=== PATIENT | male | born 1950 | race Caucasian/White ===

== ENCOUNTER 2017-02-13 00:28 | Emergency (ER) | payer BC ==
[2017-02-13] MEDS ORDERED: Ondansetron INJ* 2 MG/ML VIAL IV ONE (02:28)
[2017-02-13] MEDS: NS 0.9% 1000 ML* 2,000 ML IV ONE (02:51)
[2017-02-13 03:00] LABS: Hematocrit 45 % (42-52); Hemoglobin 15.6 g/dl (14.0-18.0); Mean Corpuscular HGB Conc 35 g/dl (31-36); Mean Corpuscular Hemoglobin 32 pg (27-31); Mean Corpuscular Volume 93 fL (80-94); Mean Platelet Volume 8 um3 (7.4-10.4); Red Blood Count 4.83 10^6/ul (4.0-5.4); Red Cell Distribution Width 13 % (10.5-15); White Blood Count 8.5 10^3/ul (3.5-10.8)
[2017-02-13 03:13] LABS: Albumin 3.6 g/dL (3.2-5.2); BUN/Creatinine Ratio 19.4 (8-20); C Reactive Protein 118.11 mg/L (< 5.00); Calcium 8.8 mg/dL (8.6-10.3); EGFR African American 75.5 (>60); EGFR Non-African American 58.7 (>60); Globulin 3.2 g/dL (2-4); Potassium 3.8 mmol/L (3.5-5.0); Total Bilirubin 0.7 mg/dL (0.2-1.0); Total Protein 6.8 g/dL (6.4-8.9)
[2017-02-13 03:15] LABS: Troponin I 0.01 ng/mL (<0.04)
[2017-02-13 03:31] LABS: TSH (Thyroid Stimulating Horm) 0.56 mcIU/mL (0.34-5.60)
[2017-02-13] MEDS ORDERED: Iodixanol* (CONTRAST) 320 MG/ML 100 ML SDV IV ONE (03:39)
[2017-02-13] MEDS ORDERED: Levofloxacin 750 MG IVPREMIX(* 750 MG/150 ML BAG IVPB ONE (07:38)
--- NOTE | 2017-02-13 07:38 | RAD ---
INDICATION: Abdominal pain COMPARISON: CT September 30, 2009 TECHNIQUE: Axial source images were obtained from the hemidiaphragms to the symphysis pubis following administration of oral and intravenous contrast. 100 mL Visipaque 320 was utilized. Coronal and sagittal reconstructed images were acquired. Lung bases: There is consolidation in the periphery of the right lung base suggesting an acute pneumonitis. Liver: The liver is normal in size. There are no masses. There is no ductal dilatation. Gallbladder: There are no calcified gallstones. There is no evidence of wall thickening or pericholecystic fluid. Spleen: The spleen is normal in size. There are no masses. Pancreas: There is no focal pancreatic mass or ductal dilatation. Adrenal glands: There is no evidence of adrenal mass. Kidneys: There is again bilateral nephrolithiasis and there are parapelvic cysts. The appearance is unchanged. There is prompt perfusion and excretion. There is are no new renal findings. Adenopathy: There is no evidence of adenopathy by size criteria. Fluid collections: There are no free or localized fluid collections. Vessels:There are no significant atherosclerotic changes involving the aorta. There is no focal aneurysm. The iliac vessels are normal in caliber. The IVC appears normal. GI tract: There is a moderate-sized hilar hernia. The upper GI tract is otherwise unremarkable. The small bowel tendon include the terminal ileum is normal. The appendix is visualized and appears normal. The remainder the colon is unremarkable.. Pelvic organs: The prostate is mildly enlarged. There are prostatic calcifications. The seminal vesicles appear normal. Bladder: There are no bladder masses. Abdominal and pelvic soft tissues: There are small fat-containing hernias noted bilaterally. There is a tiny periumbilical hernia Osseous structures: There are no acute osseous findings. There is spondylitic change of thoracolumbar junction. Other: None IMPRESSION: 1. Infiltrate right lung base may represent an acute pneumonia. 2. Bilateral parapelvic cysts and renal stones without obstruction. 3. Small hiatal hernia. 4. Small fat-containing inguinal hernias. Tiny periumbilical hernia.
--- NOTE | 2017-02-13 07:39 | RAD ---
INDICATION: Headaches COMPARISON: None TECHNIQUE: Noncontrast axial source images were acquired from the skull base to the vertex. FINDINGS: Ventricles/sulci: The ventricles and cisterns are normal in size and configuration for age. Brain parenchyma: There is no focal parenchymal finding, evidence of intracranial mass, or intracranial mass effect. Intracranial hemorrhage:None. Extra-axial spaces: There are no abnormal extra axial fluid collections or evidence of extra-axial mass. Calvarium: There is no calvarial fracture or other calvarial abnormality. Scalp: There is no evidence of scalp or extracalvarial soft tissue abnormality. Paranasal sinuses/mastoid: The paranasal sinuses and mastoid air cells are clear. Other: None. IMPRESSION: NEGATIVE EXAMINATION
--- NOTE | 2017-02-13 07:44 | RAD ---
INDICATION: Cough. Congestion. COMPARISON: None TECHNIQUE: An AP portable view obtained at 0240 hours is submitted. FINDINGS: Bones/Soft Tissues: There are no acute bony findings. Cardiomediastinal: The cardiomediastinal silhouette is normal. Lungs: There are no infiltrates. Pleura: There are no pleural effusions. Other: None IMPRESSION: NO ACTIVE DISEASE.
--- NOTE | 2017-02-13 09:22 | ED ---
Mercy Bernal Edward, scribed for Otto Walter MD on 02/13/17 at 0705 . Progress - Progress Note Progress Note: Pt signed out by Dr. Macias at shift change. Pending imaging results. On re-eval, discussed imaging results and plan of care. - Results/Orders Results/Orders: ABD/PEL CT - Patchy densities right lower lobe, correlate clinically for pneumonia. No bowel obstruction, colitis, diverticulitis, free fluid or free air. Normal appendix. Unremarkable pancreas and gallbladder. Subcentimeter Hepatic cyst or hemangioma. Parapelvic cysts and small stones bilateral kidneys. Subcentimeter cortical hypodensity right kidney. Small umbilical and bilateral inguinal hernias containing fat. Small hiatal hernia. Chronic compression fracture T9. Re-Evaluation - Re-Evaluation 1 Re-Evaluation Time: 07:33 Comment: Discussed imaging results Course/Dx - Course Course Of Treatment: The pt is signed out by Dr. Macias to f/u with the ABD/ PEL CT. He reports that the pt came in c/u ABD pain and a COELLO. Head CT negative for acute intracranial pathology. Blood work shows no significant abnormalities as per Dr. Macias. ABD/PEL CT SHOWS Patchy densities right lower lobe, correlate clinically for pneumonia. No bowel obstruction, colitis, diverticulitis, free fluid or free air. Normal appendix. Unremarkable pancreas and gallbladder. Subcentimeter Hepatic cyst or hemangioma. Parapelvic cysts and small stones bilateral kidneys. Subcentimeter cortical hypodensity right kidney. Small umbilical and bilateral inguinal hernias containing fat. Small hiatal hernia. Chronic compression fracture T9. It seems the pt has been having a cough with fevers for the last couple of weeks with weakness, secondary to PNA. Pt will be given Levaquin and instructed to f/u with PCP. CURB 65 is only 1 , therefore the pt can be treated as an outpatient. The pt is hemodynamically stable and A&Ox3. - Diagnoses Provider Diagnoses: Pneumonia The documentation as recorded by the Mercy shi Edward accurately reflects the service I personally performed and the decisions made by , Otto Walter MD.
[2017-02-13 10:00] VITALS: BP 107/62
== END 2017-02-13 09:59 ==
LOC: ED 00:28
DX: J18.9 Pneumonia, unspecified organism (principal)
CPT/HCPCS: 36415; 70450; 71010; 74177; 80053; 83605; 83690; 83735; 84443; 84484; 85025; 85610; 85730; 86140; 86618; 96361; 96374; 99284; J2405; Q9967

== ENCOUNTER 2018-08-09 18:22 | Emergency (ER) | payer MEDICARE, OTHER ==
[2018-08-09 20:22] LABS: Influenza A Molecular NEGATIVE (Negative); Influenza B Molecular NEGATIVE (Negative)
[2018-08-09] MEDS ORDERED: Azithromycin TAB* 250 MG PO ONE (21:45)
[2018-08-09] MEDS ORDERED: Albuterol/Ipratropium NEB.SOL* Albuterol 2.5 MG/Ipratropium 0.5 MG 3 ML INH ONE (21:45)
[2018-08-09] MEDS ORDERED: Benzonatate CAP* 100 MG PO ONE (21:46)
--- NOTE | 2018-08-09 21:47 | ED ---
Respiratory - HPI Summary HPI Summary: 68-year-old male presents with cough for the past 2 days. He states he's been having fevers. He also admits to chills. He states feels very fatigued. He denies any history of respiratory illness. He does not smoke. he denies any abdominal pain. No chest pain. Has shortness breath with cough. No nausea vomiting diarrhea. He admits to sore throat. He states this feels similar to when had pneumonia in the past. - History of Current Complaint Chief Complaint: EDUpperRespComplaint Stated Complaint: CONGESTED/FEVER/CONFUSED PER PT Time Seen by Provider: 08/09/18 21:36 Pain Intensity: 4 - Allergy/Home Medications Allergies/Adverse Reactions: Allergies Allergy/AdvReac Type Severity Reaction Status Date / Time No Known Allergies Allergy Verified 08/09/18 18:40 PMH/Surg Hx/FS Hx/Imm Hx Endocrine/Hematology History: Denies: Hx Diabetes Cardiovascular History: Denies: Hx Hypertension History: Denies: Hx Renal Disease - Surgical History Surgery Procedure, Year, and Place: Dental surgery - Immunization History Date of Tetanus Vaccine: UTD Date of Influenza Vaccine: 2015 Infectious Disease History: No Infectious Disease History: Denies: Traveled Outside the [place] in Last 30 Days - Family History Known Family History: Positive: Cardiac Disease, Other - Prostate CA - Social History Alcohol Use: Rare Hx Substance Use: No Substance Use Type: Reports: None Hx Tobacco Use: Yes Smoking Status (MU): Former Smoker Review of Systems Negative: Fever Negative: Chest Pain Positive: Shortness Of Breath, Cough Negative: Abdominal Pain All Other Systems Reviewed And Are Negative: Yes Physical Exam Triage Information Reviewed: Yes Vital Signs On Initial Exam: Initial Vitals Temp Pulse Resp BP Pulse Ox 99.5 F 90 20 108/66 95 08/09/18 18:36 08/09/18 18:36 08/09/18 18:36 08/09/18 18:36 08/09/18 18:36 Vital Signs Reviewed: Yes Appearance: Positive: Well-Appearing Skin: Positive: Warm, Dry Head/Face: Positive: Normal Head/Face Inspection Eyes: Positive: Normal, EOMI, VAN, Conjunctiva Clear ENT: Positive: Normal ENT inspection, Pharynx normal, TMs normal Respiratory/Lung Sounds: Positive: Breath Sounds Present, Wheezes - mild Cardiovascular: Positive: Normal, RRR Abdomen Description: Positive: Nontender, Soft Bowel Sounds: Positive: Present Musculoskeletal: Positive: Normal Neurological: Positive: Normal Psychiatric: Positive: Normal Diagnostics - Vital Signs Vital Signs Temp Pulse Resp BP Pulse Ox 08/09/18 21:18 100.1 F 08/09/18 21:12 84 122/72 08/09/18 20:28 99.2 F 89 16 110/70 96 08/09/18 18:36 99.5 F 90 20 108/66 95 - Laboratory Lab Results: Lab Results 08/09/18 Range/Units 20:11 Influenza A (Rapid) Negative (Negative) Influenza B (Rapid) Negative (Negative) Result Diagrams: 08/09/18 21:56 08/09/18 21:56 Lab Statement: Any lab studies that have been ordered have been reviewed, and results considered in the medical decision making process. - Radiology chest Radiology Interpretation Completed By: ED Physician Summary of Radiographic Findings: no pneumonia Re-Evaluation - Re-Evaluation First Eval Re-Evaluation Time: 10:00 Change: Improved Comment: lungs CTA Disposition - Course Course Of Treatment: 68-year-old male presents with cough for the past 2 days. He states he's been having fevers. He also admits to chills. He states feels very fatigued. He denies any history of respiratory illness. He does not smoke. he denies any abdominal pain. No chest pain. Has shortness breath with cough. No nausea vomiting diarrhea. He admits to sore throat. He states this feels similar to when had pneumonia in the past. On exam some wheezing noted. Normal breath sounds. wbc normal. flu neg. Chest x-ray is similar to previous one was diagnosed pneumonia. We'll treat with azithromycin and inhaler as could be bacterial bronchitis with fever. will have follow up with primary. Patient understand and agrees with plan. - Differential Dx - Cardiopulmonary Differential Diagnoses - Cardiopulmonary: Bronchitis, Influenza, Lower Resp Infection - Diagnoses Provider Diagnoses: Bronchitis Discharge - Sign-Out/Discharge Documenting (check all that apply): Patient Departure Patient Received Moderate/Deep Sedation with Procedure: No - Discharge Plan Condition: Good Disposition: HOME Prescriptions: Azithromycin TAB* [Zithromax TAB (Z-LAM) 250 mg #6 tabs] 250 mg PO DAILY #4 tab Patient Education Materials: Acute Bronchitis (ED) Referrals: [facility] [Outside] Additional Instructions: Use inhaler up to two puffs every 4 hours for cough and wheezing Take antibiotic once daily starting tomorrow for 4 days Take Tylenol for pain every 6 hours Follow up with primary within 5 days Return to ED if develop severe shortness of breath, worsening chest pain, or any new or worsening symptoms - Billing Disposition and Condition Condition: GOOD Disposition: Home
[2018-08-09 22:02] LABS: ABS Basophils 0 10^3/ul (0-0.2); ABS Eosinophils 0 10^3/ul (0-0.6); ABS Lymphocytes 0.9 10^3/ul (1.0-4.8); ABS Monocytes 0.8 10^3/ul (0-0.8); ABS Neutrophils 3.2 10^3/ul (1.5-7.7); ABS Nucleated RBC 0 10^3/ul; Eosinophil % 0.5 %; Hematocrit 44 % (36-46); Hemoglobin 15.3 g/dL (14.0-18.0); Lymphocyte % 18.3 %; Mean Corpuscular HGB Conc 35 g/dL (31-36); Mean Corpuscular Hemoglobin 33 pg (27-31); Mean Corpuscular Volume 96 fL (80-94); Mean Platelet Volume 7.6 fL (7.4-10.4); Nucleated Red Blood Cells % 0; Platelet Count 140 10^3/uL (150-450); Red Blood Count 4.64 10^6 /uL (4.18-5.48); Red Cell Distribution Width 14 % (10.5-15)
[2018-08-09 22:17] LABS: Albumin 3.9 g/dL (3.2-5.2); Albumin/Globulin Ratio 1.8 (1-3); BUN/Creatinine Ratio 12.4 (8-20); Calcium 8.6 mg/dL (8.6-10.3); EGFR African American 78.6 (>60); EGFR Non-African American 64.9 (>60); Globulin 2.2 g/dL (2-4); Potassium 3.7 mmol/L (3.5-5.0); Total Bilirubin 0.6 mg/dL (0.2-1.0); Total Protein 6.1 g/dL (6.4-8.9)
[2018-08-09] MEDS ORDERED: Albuterol HFA INHALER* 8 gm MDI INH ONE (22:29)
[2018-08-09 22:41] VITALS: BP 111/70
--- NOTE | 2018-08-11 15:23 | PN ---
Progress Note - Progress Note Date of Service: 08/09/18 - Pt and domestic partner Sonia want official CXR report. Note: Pt's partner, Sonia calls, wants CXR report from 08/09/18. Pt got on phone, verified name and . I had reviewed pt's chart and lab studies and discharge instructions. Official xray is findings consistent with COPD. Pt states he smoked in high school, and grew up in a household where he was exposed to "constant smoke". Pt has never been told COPD before. Is not on inhalers. No hx asthma or allergies. Hx pneumonia in the past. No problems taking azithromycin. Is feeling better. Pt has no PCP and is from [employer]. Was referred to [facility] (Lanny Ford). Has not called that number. After pt given COPD xray reading, discussed findings and diagnosis of COPD, and stated xray alone does not constitute the diagnosis, that he needs definite follow up with a physician. Pt voices understanding of this and states he will do so. Pt also given the name of [facility] clinic and phone number, and also a name of Jr Parra MD in case he wants a Goldy Mera MD. Pt was grateful for the information. Denies CP, SOB at this time, and no new or worsening symptoms. Pt advised to return to the ED if any new or worsening symptoms. Shelia Griffin MD 08/11/18 1510pm.
== END 2018-08-09 22:41 | disposition home or self-care (01) ==
LOC: ED 18:22
DX: J20.9 Acute bronchitis, unspecified (principal); Z87.891 Personal history of nicotine dependence
CPT/HCPCS: 36415; 71046; 80053; 83735; 85025; 99282; A9270-GY

== ENCOUNTER 2018-08-12 00:57 | Emergency (ER) | payer MEDICARE ==
[2018-08-12] MEDS ORDERED: Morphine 10 MG/ML VIAL (1 ml) IV ONE (02:50)
[2018-08-12] MEDS ORDERED: Ketorolac INJ* 30 MG/ML 1 ML VIAL IV PUSH ONE (03:02)
[2018-08-12] MEDS ORDERED: Morphine 4 MG/ML VIAL (1 ml) 4 MG/ML VIAL IV ONE (03:02)
[2018-08-12] MEDS ORDERED: NS 0.9% 1000 ML** 1,000 ML IV ONE (03:02)
[2018-08-12] MEDS ORDERED: Ondansetron INJ* 2 MG/ML VIAL IV ONE (03:02)
--- NOTE | 2018-08-12 03:09 | ED ---
Abdominal Pain/Male - HPI Summary HPI Summary: This patient is a 68 year old male presenting [place] [facility] [place] by with a chief complaint of LLQ abd pain since 2230 on 08/11/2018. The pain worsened considerably at midnight, prompting visit to the ED. Patient states that the pain additionally radiates to his left testicular area. The pain is rated 10/10 in severity. Symptoms aggravated by nothing. Symptoms alleviated by nothing. Patient additionally reports nausea and vomiting Patient has a hx of kidney stones and think that these sx may also be indicative of one. - History of Current Complaint Chief Complaint: EDGeneral Stated Complaint: TESTICULAR/FLANK PAIN, VOMITING PER PT Time Seen by Provider: 08/12/18 02:59 Hx Obtained From: Patient Onset/Duration: Lasting Hours, Still Present Timing: Constant Severity Currently: Severe Pain Intensity: 10 Pain Scale Used: 0-10 Numeric Location: Discrete At: LLQ Radiates: Yes Radiates to: Other - Testes Aggravating Factor(s): Nothing Alleviating Factor(s): Nothing Associated Signs And Symptoms: Positive: Other - nausea, vomiting - Allergies/Home Medications Allergies/Adverse Reactions: Allergies Allergy/AdvReac Type Severity Reaction Status Date / Time No Known Allergies Allergy Verified 08/12/18 01:02 PMH/Surg Hx/FS Hx/Imm Hx Previously Healthy: No Endocrine/Hematology History: Denies: Hx Diabetes Cardiovascular History: Denies: Hx Hypertension Respiratory History: Denies: Hx Asthma, Hx Chronic Obstructive Pulmonary Disease (COPD) History: Reports: Hx Kidney Stones Denies: Hx Renal Disease Opthamlomology History: Denies: Hx Legally Blind EENT History: Denies: Hx Deafness - Surgical History Surgery Procedure, Year, and Place: Dental surgery - Immunization History Date of Tetanus Vaccine: UTD Date of Influenza Vaccine: 2015 Infectious Disease History: No Infectious Disease History: Denies: Traveled Outside the [place] in Last 30 Days - Family History Known Family History: Positive: Cardiac Disease, Other - Prostate CA - Social History Lives: With Family Alcohol Use: Rare Hx Substance Use: No Substance Use Type: Reports: None Hx Tobacco Use: Yes Smoking Status (MU): Former Smoker Review of Systems Negative: Fever Positive: Abdominal Pain, Vomiting, Nausea All Other Systems Reviewed And Are Negative: Yes Physical Exam - Summary Physical Exam Summary: Appearance: Well-appearing, Well-nourished, lying in bed comfortably Skin: Warm, dry, no obvious rash Eyes: sclera anicteric, no conjunctival pallor ENT: mucous membranes moist, pharynx appears normal Neck: Supple, nontender Respiratory: Clear to auscultation, no signs of respiratory distress Cardiovascular: Normal S1, S2. No murmurs. Normal distal pulses in tibial and radial bilaterally. Abdomen: Soft, mild LLQ tenderness, normal active bowel sounds present Musculoskeletal: Normal, Strength/ROM Intact Neurological: A&Ox3, awake and alert, mentation is normal, speech is fluent and appropriate Psychiatric: affect is normal, does not appear anxious or depressed Triage Information Reviewed: Yes Vital Signs On Initial Exam: Initial Vitals Temp Pulse Resp BP Pulse Ox 98.6 F 75 18 120/75 95 08/12/18 00:59 08/12/18 00:59 08/12/18 00:59 08/12/18 00:59 08/12/18 00:59 Vital Signs Reviewed: Yes Diagnostics - Vital Signs Vital Signs Temp Pulse Resp BP Pulse Ox 08/12/18 00:59 98.6 F 75 18 120/75 95 - Laboratory Result Diagrams: 08/12/18 03:24 08/12/18 03:24 Lab Statement: Any lab studies that have been ordered have been reviewed, and results considered in the medical decision making process. - CT CT Abd/Pel CT Interpretation Completed By: Radiologist Summary of CT Findings: CT Abd/Pel reveals, per radiologist, IMPRESSION: There is a 6 mm calculus noted in the left ureter with associated moderate left-sided hydroureteronephrosis. ED physician has reviewed this radiology report. Abdominal Pain Male Course/Dx - Course Course Of Treatment: This patient is a 68 year old male presenting to [facility] accompanied by with a chief complaint of LLQ abd pain since 0 on 2018. The pain worsened considerably at midnight, prompting visit to the ED. Patient states that the pain additionally radiates to his left testicular area. The pain is rated 10/[address] Abd/Pel reveals, per radiologist, IMPRESSION: There is a 6 mm calculus noted in the left ureter with associated moderate left-sided hydroureteronephrosis. ED physician has reviewed this radiology report. Bloodwork Obtained. Urinalysis Obtained. In the ED course the patient was given NS 0.9% bolus IV, Zofran, Tamiflu, Toradol, Morphine. Patient will be discharged with a dx of kidney stones. Patient is advised to follow up with PCP in 4 days. The patient is agreeable with this plan. - Diagnoses Provider Diagnoses: Kidney stones, Renal colic on left side Discharge - Sign-Out/Discharge Documenting (check all that apply): Patient Departure Patient Received Moderate/Deep Sedation with Procedure: No - Discharge Plan Condition: Improved Disposition: HOME Prescriptions: Ondansetron ODT TAB* [Zofran 4 MG Odt TAB*] 8 mg PO Q6H PRN #20 tab.odt PRN Reason: Nausea/Vomiting oxyCODONE/Acetamin 5/325 MG* [Percocet 5/325 TAB*] 2 tab PO Q4H PRN #20 tab MDD 8 tabs PRN Reason: Pain Tamsulosin CAP* [Flomax CAP*] 0.4 mg PO DAILY #10 cap Patient Education Materials: Kidney Stones (ED) Referrals: Marky Ramos MD [Medical Doctor] - 4 Days (Contact Dr. Ramos's office on Wednesday if the stone has not passed. You do have other stones in the kidney, so you should make an appt with him in any event.) Additional Instructions: Take 2 alleve OTC as a baseline until the pain goes away and the stone is passed , and supplement with the percocet for breakthrough pain. The zofran is for nausea. - Billing Disposition and Condition Condition: IMPROVED Disposition: Home - Attestation Statements Document Initiated by Susan: Yes Documenting Scribe: Edwin Agrawal Provider For Whom Susan is Documenting (Include Credential): Raymond Otero MD Scribgrecia Attestation: Edwin Bernal, scribed for Raymond Otero MD on 08/13/18 at 0154. Scribe Documentation Reviewed: Yes Provider Attestation: The documentation as recorded by the Edwin shi accurately reflects the service I personally performed and the decisions made by Raymond wang MD Status of Scribe Document: Viewed
[2018-08-12] MEDS ORDERED: Morphine 10 MG/ML VIAL (1 ml) ONE (03:12)
[2018-08-12 03:35] LABS: ABS Basophils 0 10^3/ul (0-0.2); ABS Eosinophils 0 10^3/ul (0-0.6); ABS Lymphocytes 0.9 10^3/ul (1.0-4.8); ABS Monocytes 0.8 10^3/ul (0-0.8); ABS Neutrophils 7.5 10^3/ul (1.5-7.7); ABS Nucleated RBC 0 10^3/ul; Eosinophil % 0.4 %; Hematocrit 43 % (36-46); Hemoglobin 14.8 g/dL (14.0-18.0); Lymphocyte % 9.7 %; Mean Corpuscular HGB Conc 34 g/dL (31-36); Mean Corpuscular Hemoglobin 33 pg (27-31); Mean Corpuscular Volume 95 fL (80-94); Mean Platelet Volume 7.7 fL (7.4-10.4); Nucleated Red Blood Cells % 0; Platelet Count 152 10^3/uL (150-450); Red Blood Count 4.52 10^6 /uL (4.18-5.48); Red Cell Distribution Width 13 % (10.5-15); White Blood Count 9.2 10^3/uL (3.5-10.8)
[2018-08-12 03:59] LABS: Albumin 3.9 g/dL (3.2-5.2); Albumin/Globulin Ratio 1.7 (1-3); BUN/Creatinine Ratio 16.6 (8-20); EGFR African American 56.2 (>60); EGFR Non-African American 46.5 (>60); Globulin 2.3 g/dL (2-4); Potassium 3.7 mmol/L (3.5-5.0); Total Bilirubin 0.7 mg/dL (0.2-1.0); Total Protein 6.2 g/dL (6.4-8.9)
[2018-08-12 05:04] LABS: Urine Appearance Cloudy; Urine Bacteria Absent (Absent); Urine Bilirubin Negative (Negative); Urine Blood 2+ (Negative); Urine Color Yellow; Urine Glucose Negative (Negative); Urine Ketones 1+ (Negative); Urine Nitrite Negative (Negative); Urine Protein Negative (Negative); Urine Red Blood Cell 2+(6-10/hpf) (Absent); Urine Specific Gravity 1.024 (1.010-1.030); Urine Squamous Epithelial Cell Present (Absent); Urine Urobilinogen Negative (Negative); Urine White Blood Cell Absent (Absent)
[2018-08-12] MEDS ORDERED: Tamsulosin CAP* 0.4 MG PO ONE (05:40)
[2018-08-12 08:14] VITALS: BP 110/75
== END 2018-08-12 08:12 | disposition home or self-care (01) ==
LOC: ED 00:57
DX: N13.2 Hydronephrosis with renal and ureteral calculous obstruction (principal); Z87.442 Personal history of urinary calculi; R11.2 Nausea with vomiting, unspecified; Z87.891 Personal history of nicotine dependence
CPT/HCPCS: 36415; 74176; 80053; 81003; 81015; 85025; 96361; 96374; 96375; 99283; J1885; J2270; J2405

== ENCOUNTER 2018-08-22 14:06 | Day surgery (SDC) | payer MEDICARE, OTHER ==
[~2018-08-22 14:06] MED LIST: Acetaminophen TAB* 325 MG PO ONE; Buffered Lidocaine 1% SYRIN* 1 ML/SYRINGE INTRADERM ONE; Famotidine IV* 10 MG/ML 2 ML (20 mg) ONE; Lactated Ringers 1000 ML Bag* 1,000 ML IV SCH; cefTRIAXone(*) 2 GM in NS 0.9% 100 ML* 100 ML IVPB ONE
[2018-08-22] MEDS ORDERED: Acetaminophen TAB* 325 MG ONE (14:33)
[2018-08-22] MEDS ORDERED: fentaNYL* 50 MCG/ML 2 ML VIAL (100 MCG VIAL) ONE ×2 (15:39→18:29)
[2018-08-22] MEDS ORDERED: Midazolam* 1 MG/ML 2 ML VIAL (2 MG) ONE (15:39)
[2018-08-22] MEDS ORDERED: HYDROcodone/ACETAMIN 5-325 MG* 1 TAB PO PRN ×2 (16:44)
[2018-08-22] MEDS ORDERED: Levalbuterol 0.63MG/3ML NEB* UNIT OF USE INH PRN (16:44)
[2018-08-22] MEDS ORDERED: Ondansetron INJ* 2 MG/ML VIAL IV PRN (16:44)
[2018-08-22] MEDS ORDERED: diPHENhydraMINE IV* 50 MG/ML 1 ml VIAL (BENADRYL) IV PRN (16:44)
[2018-08-22] MEDS ORDERED: Acetaminophen TAB* 325 MG PO PRN (16:44)
[2018-08-22] MEDS ORDERED: fentaNYL* 50 MCG/ML 2 ML VIAL (100 MCG VIAL) IV PRN (16:44)
[2018-08-22] MEDS ORDERED: DiMENhydriNATE IV* 50 MG/ML VIAL IV PUSH PRN (16:44)
[2018-08-22] MEDS ORDERED: PROCHLORPERAZINE INJ 5 MG/ML 2 ML VIAL IV PRN (16:44)
[2018-08-22] MEDS ORDERED: Naloxone* 0.4 MG/ML 1 ML VIAL IV PRN (16:44)
[2018-08-22 18:21] VITALS: BP 132/92
[2018-08-22] MEDS ORDERED: Propofol* 10 MG/ML 20 ML BTL ONE (18:22)
[2018-08-22] MEDS ORDERED: Dexamethasone IV* 4 MG/ML 1 ML (4 MG) ONE (18:22)
[2018-08-22] MEDS ORDERED: Lidocaine 2% PF * 5 ML VIAL ONE (18:22)
[2018-08-22] MEDS ORDERED: Furosemide IV* 10 MG/ML 2 ML VIAL (20 MG) ONE (18:22)
--- NOTE | 2018-08-23 00:07 | OP ---
DATE OF OPERATION: 08/22/18 - [facility] DATE OF : 54 SURGEON: Dr. Ramos. ANESTHESIOLOGIST: Dr. Samuel. ANESTHESIA: General. PRE-OP DIAGNOSES: 1. Calculus, left proximal ureter. 2. Left renal calculi. POST-OP DIAGNOSES: 1. Calculus, left proximal ureter. 2. Left renal calculi. OPERATIVE PROCEDURES: 1. Shockwave lithotripsy of calculus, left ureter. 2. Shockwave lithotripsy of left renal calculus. COMPLICATIONS: None. POSTOPERATIVE CONDITION: Stable. INDICATIONS: Brennan Paniagua is a 68-year-old gentleman who had undergone urgent left stent insertion because of a large obstructing calculus in the left proximal ureter. In addition, he has multiple renal calculi. DESCRIPTION OF PROCEDURE: After induction of general anesthesia, the patient was placed on the lithotripsy table in supine position. The obstructing calculus was located in the proximal left ureter adjacent to the left stent. This was localized using fluoroscopy and shockwave lithotripsy was commenced at a rate of 90 shocks per minute. Periodic imaging revealed satisfactory localization and a total of 2400 shocks were administered to this calculus. Next, the patient was repositioned and the calculus, which was in the midpole area of the left kidney, was identified on fluoroscopy and targeted with shockwave lithotripsy at a rate of 90 shocks per minute. After the initial 300 shocks for the kidney stone, there was a brief pause in lithotripsy in an effort to minimize any potential trauma to the kidney. Lithotripsy was then resumed and a total of 1600 shocks were administered to this calculus. The patient has additional renal calculi, which were not treated at the time of this procedure and will probably require treatment in the future. My plan is to take the stent out in about a week and if he can satisfactorily pass the fragments from the calculus in the proximal ureter and the other calculus in the midpole of the left kidney, then my plan will be to bring him back in a few months for followup repeat lithotripsy in an effort to break up the remaining stones. The patient tolerated the procedure satisfactorily and was transferred back to the recovery area in stable condition. [id number]/[facility] #: [id number] [facility]ENTER[facility]
== END 2018-08-22 18:25 | disposition home or self-care (01) ==
LOC: OR 14:06
PROVIDERS: ATTEND Urology
DX: N20.2 Calculus of kidney with calculus of ureter (principal); J44.9 Chronic obstructive pulmonary disease, unspecified; Z87.891 Personal history of nicotine dependence
CPT/HCPCS: 74018; A9270-GY; J0696; J1100; J1940; J2250; J2704; J3010

== ENCOUNTER → 2018-09-23 07:07 | Day surgery (SDC) | payer MEDICARE, OTHER ==
--- NOTE | 2018-09-21 18:06 | HP ---
ADMITTING HISTORY AND PHYSICAL: DATE OF ADMISSION: 09/23/18 ADMITTING DIAGNOSES: 1. Calculus, left proximal ureter. 2. Left renal calculi. PLANNED PROCEDURE: Left ureteroscopy, left pyeloscopy, laser lithotripsy, and left stent replacement. HISTORY OF PRESENT ILLNESS: Brennan Paniagua is a 68-year-old gentleman, who had initially undergone urgent left stent insertion and subsequent shockwave lithotripsy of approximately 1 cm calculus in the left proximal ureter and additional left renal calculi. On followup x-ray, I did not see any significant fragmentation and he is now being brought in for ureteroscopy, pyeloscopy, and laser lithotripsy. PAST MEDICAL HISTORY: Significant for renal calculi. PAST SURGICAL HISTORY: Significant for the above described left stent insertion and lithotripsy. MEDICATIONS: On admission, none. ALLERGIES: No known drug allergies. FAMILY HISTORY: Negative for stones. SOCIAL HISTORY: Smoking history: He is a nonsmoker. REVIEW OF SYSTEMS: He is otherwise in excellent health. There is no history of diabetes mellitus or any other major systemic illness. PHYSICAL EXAMINATION GENERAL: Reveals a pleasant, healthy-appearing, middle-aged gentleman. VITAL SIGNS: Blood pressure is 140/68, pulse 78 per minute and regular, temperature 96.7, oxygen saturation 96% on room air. LUNGS: Clear bilaterally. CARDIOVASCULAR: Regular rate and rhythm. S1, S2. ABDOMEN: Soft with mild left flank tenderness. IMPRESSION AND PLAN: A 68-year-old gentleman with a fairly large calculus in the left proximal ureter which does not appear significantly fragmented after shockwave lithotripsy, and also with additional left renal calculi. Planned procedure is left ureteroscopy and pyeloscopy, laser lithotripsy, and left stent replacement. [id number]/[facility] #: [id number] [facility]
[~2018-09-23 07:07] MED LIST changes: -Acetaminophen TAB* 325 MG PO ONE; +Dexamethasone IV* 4 MG/ML 1 ML (4 MG) IV SLOW PU ONE; +Dexamethasone IV* 4 MG/ML 1 ML (4 MG) ONE; +DiMENhydriNATE IV* 50 MG/ML VIAL IV PUSH PRN; +Famotidine IV* 10 MG/ML 2 ML (20 mg) IV ONE; +Furosemide IV* 10 MG/ML 2 ML VIAL (20 MG) ONE; +Gentamicin ADULT (*) 160 MG in NS 0.9% 100 ML* 100 ML IVPB ONE; +Iohexol 180 (CONTRAST) 10 ML SDV IV ONE; +Midazolam* 1 MG/ML 2 ML VIAL (2 MG) ONE; +Naloxone* 0.4 MG/ML 1 ML VIAL IV PRN; +Ondansetron INJ* 2 MG/ML VIAL ONE; +Phenylephrine 40 MCG/ML SYRINGE ONE; +Propofol* 10 MG/ML 20 ML BTL ONE; +cefTRIAXone(*) 2 GM ADDV.VIAL IVPB ONE; -cefTRIAXone(*) 2 GM in NS 0.9% 100 ML* 100 ML IVPB ONE; +fentaNYL* 50 MCG/ML 2 ML VIAL (100 MCG VIAL) IV PRN; +fentaNYL* 50 MCG/ML 2 ML VIAL (100 MCG VIAL) ONE
[2018-09-23 13:44] VITALS: BP 116/75
--- NOTE | 2018-09-23 21:32 | OP ---
OPERATIVE REPORT: DATE OF OPERATION: 09/23/18 DATE OF : 54 SURGEON: Marky Ramos MD. ANESTHESIOLOGIST: Dr. Diehl. ANESTHESIA: General. PRE-OP DIAGNOSES: 1. Left hydronephrosis. 2. Calculus, left ureter. 3. Left renal calculi. POST-OP DIAGNOSES: 1. Left hydronephrosis. 2. Calculus, left ureter. 3. Left renal calculi. OPERATIVE PROCEDURE: Cystoscopy, left stent removal, left retrograde pyelogram, left ureteroscopy an d laser lithotripsy of calculus left ureter, left pyeloscopy, and laser lithotripsy of left renal nan culi and left stent insertion. COMPLICATIONS: None. STENT USED: A 8.5-Iranian, 28-cm silicone stent, left ureter. INDICATIONS: Brennan Paniagua is a 68-year-old gentleman who had undergone left stent insertion and shoc kwave lithotripsy for left renal and proximal ureteral calculi. There was virtually no change in the large calculus in the left proximal ureter after lithotripsy and he is now being brought in for laser lithotripsy of the same. I have explained to him that he may require a followup shockwave lithotrips y for some of the residual lower pole calculi in the left kidney. OPERATIVE FINDINGS: Approximately 8 to 9 mm calculus left proximal ureter with multiple left renal c alculi. DESCRIPTION OF PROCEDURE: After induction of general anesthesia, the patient was placed in dorsal li thotomy position. Sequential compression devices were in place and functioning. Initial evaluation revealed a normal-appearing urethra and a moderately enlarged prostate. The bladder was examined. T he previously placed left stent was removed. Retrograde pyelogram revealed fullness of the left emily ecting system. A 6-Iranian semirigid ureteroscope was introduced and advanced under direct vision. I n the proximal left ureter, an 8 to 9 mm calculus was noted. Using a 550 micron holmium laser, this w as successfully broken up into multiple smaller pieces. One of the fragments migrated into the lower pole of the kidney. Next, the semirigid ureteroscope was removed and an Access sheath was introduced. Through this, a fle xible ureteroscope was introduced and advanced into the renal pelvis and pyeloscopy was performed. I n a couple of mid to lower pole calyces, I could visualize 2 stones and using a 365 micron holmium la ser fiber, these were fragmented. I could see on fluoroscopy an additional calculus in a lower pole calyx, which I could not access due to the location. At the end of the procedure, the ureteroscope w as withdrawn under direct vision and an 8.5-Iranian 28-cm silicone stent was positioned under fluorosc opy with good proximal and distal positioning obtained. My plan is to obtain a postoperative x-ray a nd I suspect we will require a followup shockwave lithotripsy to completely fragment the remaining lo wer pole calculi. The patient tolerated this procedure satisfactorily and was transferred back to the recovery area in stable condition. [id number]/[facility] #: [id number]
== END | disposition home or self-care (01) ==
LOC: OR 07:07
PROVIDERS: ATTEND Urology
DX: N13.2 Hydronephrosis with renal and ureteral calculous obstruction (principal); Z87.891 Personal history of nicotine dependence
CPT/HCPCS: 74420; 82365; 88300; C1876; J0696; J1100; J1580; J1940; J2250; J2405; J2704; J3010

== ENCOUNTER → 2019-01-23 08:11 | Day surgery (SDC) | payer MEDICARE, OTHER ==
--- NOTE | 2019-01-18 18:24 | HP ---
ADMITTING HISTORY AND PHYSICAL: DATE OF ADMISSION: 01/23/19 ADMITTING DIAGNOSIS: Left renal calculus. PLANNED PROCEDURE: Shockwave lithotripsy of left renal calculus. SURGEON: Dr. Ramos. HISTORY OF PRESENT ILLNESS: Brennan Paniagua is a 68-year-old gentleman who had initially been evaluated for multiple left renal and ureteral calculi. He had previously undergone shockwave lithotripsy and laser lithotripsy and still has a residual fragment in the left kidney and is now being brought in for shockwave lithotripsy in an effort to try and achieve complete stone clearance. PAST MEDICAL HISTORY: Significant for renal calculi. PAST SURGICAL HISTORY: Significant for left stent insertion, shockwave lithotripsy and left ureteroscopy. MEDICATIONS ON ADMISSION: None. ALLERGIES: No known drug allergies. FAMILY HISTORY: Negative for stones. SOCIAL HISTORY: Smoking history: Nonsmoker. REVIEW OF SYSTEMS: He is otherwise in excellent health. He denies any chest pain or shortness of breath. PHYSICAL EXAMINATION GENERAL: Reveals a pleasant, healthy-appearing middle-aged gentleman. VITAL SIGNS: Blood pressure is 110/68, pulse 84 per minute and regular, oxygen saturation 97% on room air, temperature 96.9. LUNGS: Clear bilaterally. CARDIOVASCULAR: Regular rate and rhythm. S1, S2. ABDOMEN: Soft with mild left flank tenderness. IMPRESSION AND PLAN: A 68-year-old gentleman with left renal calculus. I have discussed the procedure of shockwave lithotripsy in detail including possible risks of bleeding, infection, incomplete fragmentation. Plan is shockwave lithotripsy of left renal calculus. [id number]/[facility] #: [id number] [facility] [place] [facility]
[~2019-01-23 08:11] MED LIST changes: -Dexamethasone IV* 4 MG/ML 1 ML (4 MG) IV SLOW PU ONE; -Dexamethasone IV* 4 MG/ML 1 ML (4 MG) ONE; -DiMENhydriNATE IV* 50 MG/ML VIAL IV PUSH PRN; -Famotidine IV* 10 MG/ML 2 ML (20 mg) IV ONE; -Famotidine IV* 10 MG/ML 2 ML (20 mg) ONE; -Gentamicin ADULT (*) 160 MG in NS 0.9% 100 ML* 100 ML IVPB ONE; -Iohexol 180 (CONTRAST) 10 ML SDV IV ONE; +Lidocaine 2% PF * 5 ML VIAL ONE; -Midazolam* 1 MG/ML 2 ML VIAL (2 MG) ONE; -Ondansetron INJ* 2 MG/ML VIAL ONE; -Phenylephrine 40 MCG/ML SYRINGE ONE; +Sodium Citrate/Citric Acid* 15 ML UDC ONE; +Sodium Citrate/Citric Acid* 15 ML UDC PO ONE; -fentaNYL* 50 MCG/ML 2 ML VIAL (100 MCG VIAL) IV PRN; -fentaNYL* 50 MCG/ML 2 ML VIAL (100 MCG VIAL) ONE
--- NOTE | 2019-01-23 13:01 | OP ---
DATE OF OPERATION: 01/23/19 - [facility] DATE OF : 54 SURGEON: Marky Ramos MD ANESTHESIOLOGIST: Dr. Giraldo. ANESTHESIA: General. PRE-OP DIAGNOSIS: Left renal calculus. POST-OP DIAGNOSIS: Left renal calculus. OPERATIVE PROCEDURE: Shockwave lithotripsy of left renal calculus. INDICATIONS: Brennan Paniagua is a 68-year-old gentleman with history of multiple left renal calculi. He was recently noted to have a residual calculus in the left kidney and is now being brought in for shockwave lithotripsy for the same. COMPLICATIONS: None. POSTOPERATIVE CONDITION: Stable. DESCRIPTION OF PROCEDURE: After induction of general anesthesia, the patient was placed on the lithotripsy table in supine position. The calculus in the mid to lower pole was localized using fluoroscopy. Shockwave lithotripsy was commenced at a rate of 60 shocks per minute. After the initial 300 shocks, there was a pause in lithotripsy for several minutes in an effort to minimize any potential trauma to the kidney. Lithotripsy was then resumed and a total of 2400 shocks were administered. The patient tolerated the procedure satisfactorily and was transferred back to the recovery area in stable condition. [id number]/[facility] #: [id number] MTDD
[2019-01-23 13:02] VITALS: BP 119/95
== END | disposition home or self-care (01) ==
LOC: OR 08:11
PROVIDERS: ATTEND Urology
DX: N20.0 Calculus of kidney (principal); Z87.442 Personal history of urinary calculi
CPT/HCPCS: 74018; A9270-GY; J0696; J1940; J2704

== ENCOUNTER 2022-10-22 10:12 | Inpatient (IN) ==
[2022-10-22] MEDS ORDERED: Ondansetron 4 mg VIAL 2 MG/ML 2 ml VIAL IV ONE (10:32)
[2022-10-22] MEDS ORDERED: Lactated Ringers 1000 ml BAG 1,000 ML IV ONE ×3 (10:32→18:25)
[2022-10-22 11:06] LABS: ABS Lymphocytes 0.3 10^3/uL (1.0-4.8); ABS Monocytes 1.1 10^3/uL (0.0-1.1); ABS Neutrophils 9.8 10^3/uL (1.5-7.6); ABS Nucleated RBC 0.01 10^3/ul; Hematocrit 47.6 % (38-53); Hemoglobin 16.4 g/dL (13.2-16.3); Lymphocyte % 2.3 %; Mean Corpuscular Hemoglobin 34.3 pg (27-33); Mean Corpuscular Hgb Conc 34.5 g/dL (31-36); Mean Corpuscular Volume 99.4 fL (80-97); Mean Platelet Volume 8.3 fL (7.5-11.2); Nucleated Red Blood Cells % 0.1 /100 WBC (0.0-0.4); Platelet Count 147 10^3/uL (150-450); Red Blood Count 4.79 10^6/uL (4.06-5.63); Red Cell Distribution Width 13.3 % (12-17); White Blood Count 11.2 10^3/uL (3.6-10.2)
[2022-10-22 11:28] LABS: Urine Appearance Clear; Urine Bilirubin Negative (Negative); Urine Blood 3+ (Negative); Urine Color Yellow; Urine Glucose 3+(>=500 mg/dL) (Negative); Urine Ketones 2+ (Negative); Urine Nitrite Negative (Negative); Urine Protein 2+(100 mg/dL) (Negative); Urine Specific Gravity 1.032 (1.002-1.030); Urine Urobilinogen Negative (Negative)
[2022-10-22 11:33] LABS: Albumin 4.1 g/dL (3.2-5.2); Albumin/Globulin Ratio 1.3 (1-3); C Reactive Protein 117.34 mg/L (<8.01); Calcium 9.3 mg/dL (8.6-10.3); Creatinine, Serum 1.49 mg/dL (0.67-1.17); Globulin 3.2 g/dL (2-4); Potassium 4.5 mmol/L (3.5-5.0); Total Bilirubin 1.6 mg/dL (0.2-1.0); Total Protein 7.3 g/dL (6.4-8.9); eGFR CKD-EPI 50.2 (>60)
[2022-10-22 11:36] LABS: Urine Bacteria Absent (Absent); Urine Red Blood Cell Trace(0-2/hpf) (Absent); Urine Squamous Epithelial Cell Present (Absent); Urine White Blood Cell Trace(0-5/hpf) (Absent)
[2022-10-22] MEDS ORDERED: Iodixanol (CONTRAST) 320 MG/ML 100 ML SDV IV ONE (12:33)
[2022-10-22] MEDS ORDERED: Piperacillin/Tazobac ADVAN 3.375 GM in NS 0.9% 100 ml BAG 100 ML IV ONE (13:51)
[2022-10-22] MEDS ORDERED: Azithromycin 500 mg/250 ml NS 500 MG/250 ML BAG IVPB SCH (15:00)
[2022-10-22 15:59] LABS: RBC Parasite Smear No Parasites Seen (No Parasite)
[2022-10-22] MEDS ORDERED: DOXYcycline 100 MG in NS 0.9% 250 ml 250 ML IVPB SCH (16:00)
[2022-10-22] MEDS: Enoxaparin 40 MG/0.4 ML SYR SUBCUT SCH (18:17)
[2022-10-22] MEDS: Azithromycin 500 mg/250 ml NS 500 MG/250 ML BAG IVPB SCH (18:18)
[2022-10-22] MEDS ORDERED: cefTRIAXone 1 gm/50 mL D5W 1 GM/50 ML BAG IV SCH (22:30)
[2022-10-22] MEDS: cefTRIAXone 1 gm/50 mL D5W 1 GM/50 ML BAG IV SCH (22:36)
[2022-10-23 06:06] LABS: ABS Lymphocytes 0.4 10^3/uL (1.0-4.8); ABS Monocytes 0.9 10^3/uL (0.0-1.1); ABS Neutrophils 6.5 10^3/uL (1.5-7.6); Hematocrit 40.2 % (38-53); Hemoglobin 14.4 g/dL (13.2-16.3); Lymphocyte % 4.5 %; Mean Corpuscular Hemoglobin 35.2 pg (27-33); Mean Corpuscular Hgb Conc 35.7 g/dL (31-36); Mean Corpuscular Volume 98.7 fL (80-97); Mean Platelet Volume 8.4 fL (7.5-11.2); Platelet Count 119 10^3/uL (150-450); Red Blood Count 4.07 10^6/uL (4.06-5.63); Red Cell Distribution Width 13.3 % (12-17); White Blood Count 7.9 10^3/uL (3.6-10.2)
[2022-10-23 06:32] LABS: Calcium 8.2 mg/dL (8.6-10.3); Creatinine, Serum 1.29 mg/dL (0.67-1.17); Magnesium 1.8 mg/dL (1.9-2.7); Potassium 3.9 mmol/L (3.5-5.0); eGFR CKD-EPI 59.6 (>60)
[2022-10-23] MEDS ORDERED: Potassium Chlor 10 meq TAB PO ONE (07:23)
[2022-10-23] MEDS ORDERED: Magnesium Sulfate 2 gm BAG 2 GM/50 ML BAG IVPB ONE (07:23)
[2022-10-23] MEDS ORDERED: Lactated Ringers 1000 ml BAG 1,000 ML IV ONE (08:53)
[2022-10-23 09:31] LABS: Albumin 3.1 g/dL (3.2-5.2); Albumin/Globulin Ratio 1.3 (1-3); Direct Bilirubin 0.4 mg/dL (0.03-0.18); Globulin 2.4 g/dL (2-4); Indirect Bilirubin 0.6 mg/dL (0.3-1.0); Total Protein 5.5 g/dL (6.4-8.9)
[2022-10-23] MEDS: Aspirin EC 81 mg TAB.EC (enteric coated) PO SCH (09:39)
[2022-10-23] MEDS: NF:DAPAGLIFLOZIN 10 MG TAB (NF) PO SCH (11:40)
[2022-10-23] MEDS: Enoxaparin 40 MG/0.4 ML SYR SUBCUT SCH (16:16)
[2022-10-23] MEDS: Azithromycin 500 mg/250 ml NS 500 MG/250 ML BAG IVPB SCH (17:34)
[2022-10-23] MEDS: cefTRIAXone 1 gm/50 mL D5W 1 GM/50 ML BAG IV SCH (22:21)
[2022-10-24 07:18] LABS: ABS Lymphocytes 0.6 10^3/uL (1.0-4.8); ABS Monocytes 0.8 10^3/uL (0.0-1.1); ABS Neutrophils 3.4 10^3/uL (1.5-7.6); ABS Nucleated RBC 0.01 10^3/ul; Eosinophil % 0.2 %; Hematocrit 40.7 % (38-53); Hemoglobin 14.1 g/dL (13.2-16.3); Lymphocyte % 12.2 %; Mean Corpuscular Hemoglobin 34.6 pg (27-33); Mean Corpuscular Hgb Conc 34.6 g/dL (31-36); Mean Corpuscular Volume 100.2 fL (80-97); Mean Platelet Volume 8.9 fL (7.5-11.2); Nucleated Red Blood Cells % 0.1 /100 WBC (0.0-0.4); Platelet Count 106 10^3/uL (150-450); Red Blood Count 4.06 10^6/uL (4.06-5.63); Red Cell Distribution Width 13.4 % (12-17); White Blood Count 4.7 10^3/uL (3.6-10.2)
[2022-10-24 07:37] LABS: Albumin 2.8 g/dL (3.2-5.2); Albumin/Globulin Ratio 1.2 (1-3); Calcium 7.8 mg/dL (8.6-10.3); Creatinine, Serum 1.24 mg/dL (0.67-1.17); Globulin 2.3 g/dL (2-4); Magnesium 2.2 mg/dL (1.9-2.7); Potassium 3.8 mmol/L (3.5-5.0); Total Bilirubin 0.8 mg/dL (0.2-1.0); Total Protein 5.1 g/dL (6.4-8.9); eGFR CKD-EPI 62.5 (>60)
[2022-10-24] MEDS ORDERED: Lactated Ringers 1000 ml BAG 1,000 ML IV ONE (08:29)
[2022-10-24] MEDS: NF:DAPAGLIFLOZIN 10 MG TAB (NF) PO SCH (09:03)
[2022-10-24] MEDS: Aspirin EC 81 mg TAB.EC (enteric coated) PO SCH (09:10)
[2022-10-24 18:02] LABS: Anaplasma phagocytophilum Negative (Negative); B. miyamotoi PCR, B Negative (Negative); Babesia divergens/MO-1 Negative (Negative); Babesia ducani Negative (Negative); Ehrlichia chaffeensis Negative (Negative); Ehrlichia ewingii/canis Negative (Negative); Ehrlichia muris eauclairensis Negative (Negative)
[2022-10-24] MEDS: Enoxaparin 40 MG/0.4 ML SYR SUBCUT SCH (18:41)
[2022-10-24] MEDS: Azithromycin 500 mg/250 ml NS 500 MG/250 ML BAG IVPB SCH (18:42)
[2022-10-24] MEDS: cefTRIAXone 1 gm/50 mL D5W 1 GM/50 ML BAG IV SCH (23:01)
[2022-10-25 06:33] LABS: ABS Eosinophils 0.1 10^3/uL (0.0-0.5); ABS Lymphocytes 0.6 10^3/uL (1.0-4.8); ABS Monocytes 0.7 10^3/uL (0.0-1.1); ABS Neutrophils 2.7 10^3/uL (1.5-7.6); Eosinophil % 1.6 %; Hematocrit 40.3 % (38-53); Hemoglobin 14.1 g/dL (13.2-16.3); Lymphocyte % 14.3 %; Mean Corpuscular Hemoglobin 33.9 pg (27-33); Mean Corpuscular Volume 96.7 fL (80-97); Mean Platelet Volume 8.8 fL (7.5-11.2); Nucleated Red Blood Cells % 0.1 /100 WBC (0.0-0.4); Platelet Count 113 10^3/uL (150-450); Red Blood Count 4.16 10^6/uL (4.06-5.63); Red Cell Distribution Width 13.2 % (12-17); White Blood Count 4.1 10^3/uL (3.6-10.2)
[2022-10-25 06:47] LABS: Calcium 7.6 mg/dL (8.6-10.3); Creatinine, Serum 1.02 mg/dL (0.67-1.17); Magnesium 1.8 mg/dL (1.9-2.7); Potassium 3.6 mmol/L (3.5-5.0); eGFR CKD-EPI 79.1 (>60)
[2022-10-25] MEDS ORDERED: Potassium Chlor 20 meq TAB.ER PO ONE (07:04)
[2022-10-25] MEDS ORDERED: Magnesium Sulfate 2 gm BAG 2 GM/50 ML BAG IVPB ONE (07:05)
[2022-10-25] MEDS: Aspirin EC 81 mg TAB.EC (enteric coated) PO SCH (08:43)
[2022-10-25] MEDS: NF:DAPAGLIFLOZIN 10 MG TAB (NF) PO SCH (08:45)
[2022-10-25] MEDS: Enoxaparin 40 MG/0.4 ML SYR SUBCUT SCH (16:28)
[2022-10-25] MEDS: cefTRIAXone 1 gm/50 mL D5W 1 GM/50 ML BAG IV SCH (23:44)
[2022-10-26 06:57] LABS: ABS Eosinophils 0.3 10^3/uL (0.0-0.5); ABS Lymphocytes 0.9 10^3/uL (1.0-4.8); ABS Monocytes 0.6 10^3/uL (0.0-1.1); ABS Neutrophils 2.6 10^3/uL (1.5-7.6); Hematocrit 42.5 % (38-53); Hemoglobin 14.8 g/dL (13.2-16.3); Lymphocyte % 20.1 %; Mean Corpuscular Hemoglobin 34.5 pg (27-33); Mean Corpuscular Hgb Conc 34.8 g/dL (31-36); Mean Platelet Volume 8.4 fL (7.5-11.2); Nucleated Red Blood Cells % 0.1 /100 WBC (0.0-0.4); Platelet Count 143 10^3/uL (150-450); Red Cell Distribution Width 13.2 % (12-17); White Blood Count 4.4 10^3/uL (3.6-10.2)
[2022-10-26 07:44] LABS: Calcium 8.3 mg/dL (8.6-10.3); Creatinine, Serum 0.96 mg/dL (0.67-1.17); Potassium 3.9 mmol/L (3.5-5.0)
[2022-10-26] MEDS: Aspirin EC 81 mg TAB.EC (enteric coated) PO SCH (09:03)
[2022-10-26] MEDS: NF:DAPAGLIFLOZIN 10 MG TAB (NF) PO SCH (09:04)
[2022-10-26] MEDS ORDERED: Potassium Chlor 10 meq TAB PO ONE (09:32)
[2022-10-26 15:25] VITALS: BP 94/60
== END 2022-10-26 15:58 | disposition home or self-care (01) | DRG 871 ==
LOC: EDHOLD 10:12 → ED 10:12 → OBSVTOIN 15:28 → SUATTDRO 15:28 → EDHOLD 15:57 → MEDTELE 16:57
PROVIDERS: ADMIT Internal Medicine; ATTEND Hospitalist